=== PATIENT | male | born 1970 | race Two or more races ===

== ENCOUNTER 2018-02-23 16:22 | Inpatient (IN) | payer MEDICAID ==
[~2018-02-23] VITALS: Ht 172.7 cm; Wt 68.7 kg
[2018-02-23] MEDS ORDERED: TAMSULOSIN HCL0.4 MG GT (16:51)
[2018-02-23] MEDS ORDERED: FUROSEMIDE40 MG GT (16:51)
[2018-02-23] MEDS ORDERED: MULTIVITAMINS1 EAC2 GT (16:51)
[2018-02-23] MEDS ORDERED: HEPARIN SO5000 UNIT2 SUBQ (16:51)
[2018-02-23] MEDS ORDERED: VITAMIN D1000 UNI1 GT (16:51)
[2018-02-23] MEDS ORDERED: PRO-STAT LIQUID30 ML GT (16:51)
[2018-02-23] MEDS ORDERED: NORVASC10 MG GT (16:51)
[2018-02-23] MEDS ORDERED: PANTOPRAZOLE SO40 MG GT (16:51)
[2018-02-23] MEDS ORDERED: ASPIR 8181 MG GT (16:51)
[2018-02-23] MEDS ORDERED: FERROUS SULFAT325 MG GT (16:51)
[2018-02-23] MEDS ORDERED: LIPITOR80 MG GT (16:51)
[2018-02-23] MEDS ORDERED: VITAMIN B-1100 MG GT (16:51)
[2018-02-23] MEDS ORDERED: METOPROLOL SUCC25 MG GT (16:51)
[2018-02-23] MEDS ORDERED: ASCORBIC ACID500 MG GT (16:51)
[2018-02-23] MEDS ORDERED: URECHOLINE50 MG GT (16:51)
[2018-02-23] MEDS ORDERED: LISINOPRIL20 MG GT (16:51)
[2018-02-23] MEDS ORDERED: BACLOFEN10 MG GT (16:51)
[2018-02-23] MEDS ORDERED: REGULAR INSULIN SS (16:52)
[2018-02-23] MEDS ORDERED: NOVOLIN N100 UNIT/1 SUBQ (16:52)
[2018-02-23] MEDS ORDERED: levETIRAcetam 500 MG in D5W 110 ML IV ONE (17:00)
[2018-02-23] MEDS ORDERED: duo neb HHN (17:02)
[2018-02-23] MEDS ORDERED: ZOFRAN4 M3 GT (17:02)
[2018-02-23] MEDS ORDERED: COLACE100 MG GT (17:02)
[2018-02-23] MEDS ORDERED: ACETAMINOPHEN325 M1 GT (17:02)
[2018-02-23] MEDS ORDERED: dulcolax supp RC (17:02)
[2018-02-23] MEDS ORDERED: SENNA8.6 M2 GT (17:02)
[2018-02-23] MEDS ORDERED: MILK OF MA400 MG/51 GT ×2 (17:02→19:15)
[2018-02-23] MEDS ORDERED: fleets enema RC (17:02)
[2018-02-23 17:35] LABS: BASOPHILS % (AUTO) 0.7 % (0.0-2.0); EOSINOPHILS % (AUTO) 3.8 % (0.0-3.0); HEMATOCRIT 31.7 % (42.0-52.0); HEMOGLOBIN 10.7 G/DL (14.2-18.0); LYMPHOCYTES % (AUTO) 25.4 % (20.0-45.0); MEAN CORPUSCULAR VOLUME 88 FL (80-99); MONOCYTES % (AUTO) 6.3 % (1.0-10.0); NEUTROPHILS % (AUTO) 63.8 % (45.0-75.0); PLATELET COUNT 354 K/UL (150-450); RED CELL DISTRIBUTION WIDTH 10.2 % (11.6-14.8); WHITE BLOOD COUNT 16.9 K/UL (4.8-10.8)
[2018-02-23 17:41] LABS: ANION GAP 15 mmol/L (5-15); BLOOD UREA NITROGEN 84 mg/dL (7-18); CALCIUM 10.4 MG/DL (8.5-10.1); CARBON DIOXIDE 26 MMOL/L (21-32); CHLORIDE 95 MMOL/L (98-107); CREATININE 2.4 MG/DL (0.55-1.30); POTASSIUM 4.9 MMOL/L (3.5-5.1); SODIUM 135 MMOL/L (136-145)
[2018-02-23 17:45] LABS: ALANINE AMINOTRANSFERASE 129 U/L (12-78); ALBUMIN 3.8 G/DL (3.4-5.0); ALBUMIN/GLOBULIN RATIO 0.8 (1.0-2.7); ALKALINE PHOSPHATASE 158 U/L (46-116); ASPARTATE AMINO TRANSFERASE 36 U/L (15-37); BILIRUBIN,TOTAL 0.3 MG/DL (0.2-1.0)
--- NOTE | 2018-02-23 18:45 | Emergency Room Report ---
History of Present Illness General Chief Complaint: Seizure Source: Patient, Medical Record Present Illness HPI Patient is a 47-year-old male presented after increased seizure activity. 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 Patient had no previous seizures. Patient had been having some episodes of vomiting. Patient had a seizure lasting approximately 7 minutes at [facility].Patient is followed by Dr. Bowman. Allergies: Coded Allergies: No Known Allergies (Unverified , 02/23/18) Patient History Reviewed Nursing Documentation: PMH: Agreed; PSxH: Agreed Nursing Documentation-PMH Past Medical History: No History, Except For Hx Hypertension: Yes Hx Diabetes: Yes Hx Gastrointestinal Problems: Yes - G-tube, GERD Hx Cerebrovascular Accident: Yes - cerebral edema Review of Systems All Other Systems: limited Physical Exam Vital Signs Date Time Temp Pulse Resp B/P (MAP) Pulse Ox O2 Delivery O2 Flow Rate FiO2 02/23/18 16:25 98.1 114 16 137/76 98 Room Air Sp02 EP Interpretation: reviewed, normal General Appearance: normal inspection, well appearing, no apparent distress, alert Head: atraumatic, other - post surgical skull ENT: normal ENT inspection, hearing grossly normal, normal voice Neck: normal inspection, full range of motion, supple, no bony tend Respiratory: normal inspection, lungs clear, normal breath sounds, no respiratory distress, no retraction, no wheezing Cardiovascular #1: regular rate, rhythm, no edema Gastrointestinal: normal inspection, normal bowel sounds, non tender, soft, no guarding, no hernia, other - gtube present Genitourinary: no CVA tenderness Musculoskeletal: normal inspection, back normal, normal range of motion Neurologic: normal inspection, alert, responsive, motor weakness - right upper and lower extremity Psychiatric: normal inspection, judgement/insight normal, mood/affect normal Skin: normal inspection, normal color, no rash Medical Decision Making Diagnostic Impression: Primary Impression: Epileptic seizure, generalized Additional Impressions: Vomiting History of CVA (cerebrovascular accident) ER Course Patient presented for new onset seizure. Differential diagnosis include was not limited to electrolyte abnormality, post stroke seizure, meningitis, encephalitis, among others. Because of complexity of patient's case laboratory testing and imaging studies were ordered. CT imaging of the head read by radiology showed postsurgical changes without evident acute changes. Patient was started on IV Keppra. Patient was given IV fluids. Patient was noted to be vomiting after feeding and so CT of abdomen pelvis was ordered. Dr.Helder Rogel was contacted for inpatient management and agreed to admit the patient. Labs Test 02/23/18 16:36 02/23/18 16:42 White Blood Count 16.9 K/UL (4.8-10.8) Red Blood Count 3.60 M/UL (4.70-6.10) Hemoglobin 10.7 G/DL (14.2-18.0) Hematocrit 31.7 % (42.0-52.0) Mean Corpuscular Volume 88 FL (80-99) Mean Corpuscular Hemoglobin 29.7 PG (27.0-31.0) Mean Corpuscular Hemoglobin Concent 33.9 G/DL (32.0-36.0) Red Cell Distribution Width 10.2 % (11.6-14.8) Platelet Count 354 K/UL (150-450) Mean Platelet Volume 8.3 FL (6.5-10.1) Neutrophils (%) (Auto) 63.8 % (45.0-75.0) Lymphocytes (%) (Auto) 25.4 % (20.0-45.0) Monocytes (%) (Auto) 6.3 % (1.0-10.0) Eosinophils (%) (Auto) 3.8 % (0.0-3.0) Basophils (%) (Auto) 0.7 % (0.0-2.0) Sodium Level 135 MMOL/L (136-145) Potassium Level 4.9 MMOL/L (3.5-5.1) Chloride Level 95 MMOL/L (98-107) Carbon Dioxide Level 26 MMOL/L (21-32) Anion Gap 15 mmol/L (5-15) Blood Urea Nitrogen 84 mg/dL (7-18) Creatinine 2.4 MG/DL (0.55-1.30) Estimat Glomerular Filtration Rate 29.0 mL/min (>60) Glucose Level 218 MG/DL (74-106) Calcium Level 10.4 MG/DL (8.5-10.1) Total Bilirubin 0.3 MG/DL (0.2-1.0) Aspartate Amino Transf (AST/SGOT) 36 U/L (15-37) Alanine Aminotransferase (ALT/SGPT) 129 U/L (12-78) Alkaline Phosphatase 158 U/L (46-116) Troponin I 0.000 ng/mL (0.000-0.056) Total Protein 8.6 G/DL (6.4-8.2) Albumin 3.8 G/DL (3.4-5.0) Globulin 4.8 g/dL Albumin/Globulin Ratio 0.8 (1.0-2.7) Urine Color Pale yellow Urine Appearance Clear Urine pH 6 (4.5-8.0) Urine Specific [place] 1.010 (1.005-1.035) Urine Protein 1+ (NEGATIVE) Urine Glucose (UA) Negative (NEGATIVE) Urine Ketones Negative (NEGATIVE) Urine Blood Negative (NEGATIVE) Urine Nitrite Negative (NEGATIVE) Urine Bilirubin Negative (NEGATIVE) Urine Urobilinogen Normal MG/DL (0.0-1.0) Urine Leukocyte Esterase Negative (NEGATIVE) Urine RBC 0-2 /HPF (0 - 0) Urine WBC 0-2 /HPF (0 - 0) Urine Squamous Epithelial Cells None /LPF (NONE/OCC) Urine Bacteria None /HPF (NONE) EKG Diagnostic Results Rate: normal - 107 Rhythm: NSR ST Segments: no acute changes Last Vital Signs Date Time Temp Pulse Resp B/P (MAP) Pulse Ox O2 Delivery O2 Flow Rate FiO2 02/23/18 16:25 98.1 114 16 137/76 98 Room Air Status: unchanged Disposition: ADMITTED INPATIENT Condition: Serious Referrals: Harriett Bowman MD (PCP) Eduardo De La Cruz MD Feb 23, 2018 18:45
[2018-02-23] MEDS ORDERED: METOPROLOL TART25 MG ORAL (18:57)
[2018-02-23] MEDS ORDERED: METOPROLOL TART25 MG GT (18:57)
[2018-02-23] MEDS ORDERED: OMEPRAZOLE20 M2 GT (18:57)
[2018-02-23] MEDS ORDERED: NOVOLIN R100 UNIT/1 SUBQ (19:18)
[2018-02-23] MEDS ORDERED: DULCOLAX10 MG RC (19:18)
[2018-02-23] MEDS ORDERED: DUONEB 0.5-3(2.53 ML HHN (19:18)
[2018-02-23] MEDS ORDERED: FLEET ENEMA133 ML RECTAL (19:18)
[2018-02-23] MEDS ORDERED: HYDROXYZINE HCL10 M1 PO ×2 (19:24)
[2018-02-23 19:26] LABS: APPEARANCE,URINE CLEAR; BILIRUBIN, URINE NEGATIVE (NEGATIVE); COLOR,URINE PALE YELLOW; GLUCOSE, URINE (UA) NEGATIVE (NEGATIVE); KETONES,URINE NEGATIVE (NEGATIVE); LEUKOCYTE ESTERASE ,URINE NEGATIVE (NEGATIVE); NITRITE,URINE NEGATIVE (NEGATIVE); PH,URINE 6 (4.5-8.0); PROTEIN,URINE 1+ (NEGATIVE); UROBILINOGEN,URINE NORMAL MG/DL (0.0-1.0)
[2018-02-23 19:28] VITALS: BP 100/60
[2018-02-23 21:22] VITALS: BP 112/60
[2018-02-23] MEDS ORDERED: Acetaminophen 650mg/20.3ml GT PRN (22:15)
[2018-02-23 23:20] VITALS: BP 139/75
[2018-02-23] MEDS: Metoprolol 25mg tab GT SCH (23:52)
[2018-02-24] VITALS: BP 110/60
[2018-02-24 04:00] VITALS: BP 105/61
[2018-02-24 05:38] LABS: BASOPHILS % (AUTO) 0.7 % (0.0-2.0); EOSINOPHILS % (AUTO) 0.9 % (0.0-3.0); HEMATOCRIT 28.1 % (42.0-52.0); HEMOGLOBIN 9.6 G/DL (14.2-18.0); LYMPHOCYTES % (AUTO) 13.8 % (20.0-45.0); MEAN CORPUSCULAR VOLUME 88 FL (80-99); MONOCYTES % (AUTO) 6.4 % (1.0-10.0); NEUTROPHILS % (AUTO) 78.3 % (45.0-75.0); PLATELET COUNT 304 K/UL (150-450); RED BLOOD COUNT 3.19 M/UL (4.70-6.10); RED CELL DISTRIBUTION WIDTH 10.5 % (11.6-14.8); WHITE BLOOD COUNT 15.6 K/UL (4.8-10.8)
[2018-02-24 06:10] LABS: ANION GAP 9 mmol/L (5-15); BLOOD UREA NITROGEN 75 mg/dL (7-18); CALCIUM 9.7 MG/DL (8.5-10.1); CARBON DIOXIDE 26 MMOL/L (21-32); CHLORIDE 101 MMOL/L (98-107); CREATININE 1.9 MG/DL (0.55-1.30); POTASSIUM 5.2 MMOL/L (3.5-5.1); SODIUM 136 MMOL/L (136-145)
[2018-02-24] MEDS: NovoLOG Insulin Flexpen SUBQ SCH ×4 (06:13→23:58)
[2018-02-24] MEDS ORDERED: NovoLOG Insulin Flexpen SUBQ SCH (06:30)
[2018-02-24 08:00] VITALS: BP 91/60
[2018-02-24] MEDS: Metoprolol 25mg tab GT SCH ×2 (08:36→21:34)
[2018-02-24] MEDS: Bethanechol 25mg Tab GT SCH ×2 (08:49→17:41)
[2018-02-24] MEDS: Mag Plus Protein 133mg Tab GT SCH ×3 (08:50→17:41)
[2018-02-24] MEDS ORDERED: Aspirin Baby 81mg GT SCH (09:00)
[2018-02-24] MEDS ORDERED: Ascorbic Acid 500mg tab GT SCH (09:00)
[2018-02-24] MEDS ORDERED: Heparin 5000 units/ml inj SUBQ SCH (09:00)
[2018-02-24] MEDS ORDERED: Thiamine 100mg tab GT SCH (09:00)
--- NOTE | 2018-02-24 10:58 | Diagnostic Imaging Report ---
Indication: Abdominal pain, vomiting Technique: Spiral acquisitions obtained through the abdomen and pelvis. No oral contrast utilized, per emergency room physician request No IV contrast utilized, per referring physician request.. Multiplanar reconstructions were generated. Total dose length product 910.63 mGycm. CTDIvol(s) 16.14 mGy. Dose reduction achieved using automated exposure control Comparison: None Findings: There is a gastrostomy which appears to be well positioned. The stomach, esophagus, and duodenum are otherwise unremarkable. The appendix is normal. No evidence of diverticulosis or diverticulitis. No small bowel distention. No free or loculated intraperitoneal gas or fluid. Lack of IV contrast limits assessment of the solid organs. The liver, gallbladder, bile ducts, pancreas, spleen, adrenals, kidneys are unremarkable. There is some nonspecific bilateral perinephric fat stranding. The bladder is mildly distended, equivocally slightly thick walled, otherwise unremarkable. Prostate and seminal vesicles are unremarkable. The included lung bases demonstrate posterior atelectatic changes. The bones are unremarkable. Impression: No definite acute abnormality Gastrostomy in good position Equivocal bladder wall thickening, could indicate cystitis. Correlate with clinical findings Nonspecific bilateral perinephric fat stranding This agrees with the preliminary interpretation provided overnight by [facility] teleradiology service. The CT scanner at [facility] is accredited by the [employer] and the scans are performed using protocols designed to limit radiation exposure to as low as reasonably achievable to attain images of sufficient resolution adequate for diagnostic evaluation.
[2018-02-24] MEDS ORDERED: levETIRAcetam 500mg/5ml Liquid GT SCH (11:00)
--- NOTE | 2018-02-24 11:45 | History and Physical Report ---
DATE OF ADMISSION: 02/23/2018 REASON FOR ADMISSION: 1. Seizures. 2. Acute kidney injury. HISTORY OF PRESENT ILLNESS: The patient is a 47-year-old male who five months ago had a traumatic brain injury and craniotomy at [facility]. The patient had been doing well until noticed the patient having seizures yesterday. As such, he was brought in for further evaluation and care. CT of the head results are still pending, but was reported negative by ER physician. The patient was given Keppra and his seizures have stopped. says he is back to normal baseline. He is a resident of [facility]. In no overt distress. No chest pain, vomiting, diarrhea, or abdominal pain. ALLERGIES: No known drug allergies. PAST MEDICAL HISTORY: 1. Diabetes. 2. Hypertension. 3. Traumatic brain injury. FAMILY HISTORY: Noncontributory. PAST SURGICAL HISTORY: Craniotomy. REVIEW OF SYSTEMS: Cannot obtain. LABORATORY DATA: Labs dated 02/24/2018, sodium 136, potassium 5.2, BUN 75, creatinine 1.9, and glucose 153. White cell count 15.6, platelet count 304,000, and hemoglobin 9.6. PHYSICAL EXAMINATION: VITAL SIGNS: Blood pressure 91/60, pulse 83, temperature 97.7, and pulse oximetry 97% on room air. GENERAL: The patient is awake and alert. HEENT: Extraocular muscles intact. No lymphadenopathy noted. CARDIOVASCULAR: S1 and S2. No rubs or gallops. PULMONARY: Clear to auscultation bilaterally. No rales, rhonchi, or wheezes. ABDOMEN: Nondistended and nontender. EXTREMITIES: No edema. ASSESSMENT AND PLAN: 1. New-onset seizures, has history of prior craniotomy five months ago. We will initiate Keppra 500 mg twice a day through G-tube and monitor levels. When the patient is stable, he will be discharged to follow up with his neurologist at [facility]. 2. Hypotension. Hold blood pressure medications if systolic less than 110. Continue to monitor. Initiate IV fluids. 3. Leukocytosis. Check urine and blood cultures. Consult Infectious Disease for evaluation. 4. Diabetes mellitus. Continue insulin sliding scale and low-carbohydrate diet. 5. Hypertension. Avoid hypertensive episodes. 6. Acute kidney injury. Creatinine has improved from 2.4 to 1.9 and BUN 84 to 75. Continue IV hydration and hemodynamic stability. Nasim Rogel MD DR: JOLENE JOB#: [id number] CC:
[2018-02-24 11:48] VITALS: BP 116/65
--- NOTE | 2018-02-24 11:50 | Consultation ---
History of Present Illness General Date patient seen: Feb 24, 2018 Chief Complaint: Seizure Present Illness HPI 47 y/o M with hx of HTN, Dm2, GERD, CVA, TBI s/p craniectomy, SNF resident presents to ED on 02/23 with seizures and episodes of vomiting. Allergies: Coded Allergies: No Known Allergies (Unverified , 02/23/18) Medication History Scheduled Amino Acids/Protein Hydrolys (Pro-Stat Liquid), 30 ML GT DAILY, (Reported) Amlodipine Besylate (Norvasc), 10 MG GT DAILY, (Reported) Ascorbic Acid* (Ascorbic Acid*), 500 MG GT DAILY, (Reported) Aspirin* (Aspir 81*), 81 MG GT DAILY, (Reported) Atorvastatin (Lipitor), 80 MG GT BEDTIME, (Reported) Baclofen* (Baclofen*), 10 MG GT DAILY, (Reported) Bethanechol Chl* (Urecholine*), 50 MG GT BID, (Reported) Cholecalciferol (Vitamin D3)* (Vitamin D*), 5,000 UNIT GT DAILY, (Reported) Docusate Sodium* (Colace*), 100 MG GT DAILY, (Reported) Ferrous Sulfate* (Ferrous Sulfate*), 325 MG GT DAILY, (Reported) Furosemide* (Lasix*), 40 MG GT TWICE A DAY, (Reported) Heparin Sod (Porcine) (Heparin Sodium*), 5,000 UNITS SUBQ EVERY 12 HOURS, ( Reported) Hydroxyzine Hcl (Hydroxyzine Hcl), 20 MG PO DAILY, (Reported) Insulin Regular, Human* (Novolin R*), 0 SUBQ .SLIDING SCALE, (Reported) Lisinopril (Lisinopril*), 20 MG GT BID, (Reported) Metoprolol Tartrate* (Metoprolol Tartrate*), 25 MG GT EVERY 12 HOURS, (Reported) Multivitamins* (Multivitamins*), 1 TAB GT DAILY, (Reported) Nph, Human Insulin Isophane* (Novolin N*), 22 SUBQ Q8HR, (Reported) Omeprazole (Omeprazole), 20 MG GT DAILY, (Reported) Sennosides (Senna), 2 TAB GT QHS, (Reported) Tamsulosin Hcl (Tamsulosin Hcl*), 0.4 MG GT BEDTIME, (Reported) Thiamine Hcl* (Vitamin B-1*), 100 MG GT DAILY, (Reported) Scheduled PRN Acetaminophen* (Acetaminophen 325MG Tablet*), 650 MG GT Q4H PRN for For Pain, ( Reported) Bisacodyl (Dulcolax), 10 MG RC DAILY PRN for Constipation, (Reported) Hydroxyzine Hcl (Hydroxyzine Hcl), 20 MG PO Q6HR PRN for Itching, (Reported) Ipratropium/Albuterol Sulfate (DuoNeb 0.5-3(2.5)mg/3ml), 3 ML HHN Q6HR PRN for Shortness of Breath, (Reported) Magnesium Hydroxide* (Milk Of Magnesia*), 30 ML GT DAILY PRN for Constipation, ( Reported) Na Phos,M-B/Na Phos,Di-Ba* (Fleet Enema*), 133 ML RECTAL q2day PRN for Constipation, (Reported) Ondansetron* (Zofran*), 4 MG GT Q6H PRN for Nausea & Vomiting, (Reported) Discontinued Medications Pantoprazole* (Pantoprazole*), 40 MG GT DAILY, (Reported) Discontinued Reason: Therapy completed Patient History Healthcare decision maker N Resuscitation status Chemical (Meds Only) Advanced Directive on File Patient History Narrative PMhx: as above Shx: reviewed Fhx: non contributory Review of Systems All Other Systems: negative except mentioned in HPI Physical Exam Physical Exam Narrative General Appearance: normal inspection, well appearing, no apparent distress, alert HEENT: normal ENT inspection, hearing grossly normal, normal voice Neck: normal inspection, full range of motion, supple, no bony tend Respiratory: normal inspection, lungs clear, normal breath sounds, no respiratory distress, no retraction, no wheezing Cardiovascular : regular rate, rhythm, no edema Gastrointestinal: normal inspection, normal bowel sounds, non tender, soft, no guarding, no hernia Genitourinary: no CVA tenderness Musculoskeletal: normal inspection, back normal, normal range of motion Neurologic: normal inspection, alert, responsive, speech normal Skin: normal inspection, normal color, no rash Last 24 Hour Vital Signs Date Time Temp Pulse Resp B/P (MAP) Pulse Ox O2 Delivery O2 Flow Rate FiO2 02/24/18 08:37 83 91/60 02/24/18 08:36 83 91/60 02/24/18 08:00 97.7 83 19 91/60 (70) 97 02/24/18 08:00 79 02/24/18 08:00 Room Air 02/24/18 04:00 Room Air 02/24/18 04:00 83 02/24/18 04:00 98.8 80 20 105/61 (76) 100 02/24/18 00:00 98.7 91 20 110/60 (77) 100 02/24/18 00:00 Room Air 02/24/18 00:00 87 02/24/18 00:00 Room Air 02/23/18 23:52 91 139/75 02/23/18 23:20 97.7 91 20 139/75 (96) 100 02/23/18 23:10 98.1 86 14 112/60 100 Room Air 02/23/18 21:22 98.1 86 14 112/60 100 Room Air 02/23/18 19:28 84 16 02/23/18 19:28 98.1 84 16 100/60 99 Room Air 02/23/18 16:25 98.1 114 16 137/76 98 Room Air Intake and Output 02/23/18 02/24/18 18:59 06:59 Intake Total 1000 ml 776 ml Balance 1000 ml 776 ml IV Total 1000 ml 646 ml Tube Feeding 130 ml # Voids 1 2 Laboratory Tests Test 02/23/18 16:36 02/23/18 16:42 02/24/18 03:20 02/24/18 10:15 White Blood Count 16.9 K/UL (4.8-10.8) H 15.6 K/UL (4.8-10.8) H Red Blood Count 3.60 M/UL (4.70-6.10) L 3.19 M/UL (4.70-6.10) L Hemoglobin 10.7 G/DL (14.2-18.0) L 9.6 G/DL (14.2-18.0) L Hematocrit 31.7 % (42.0-52.0) L 28.1 % (42.0-52.0) L Mean Corpuscular Volume 88 FL (80-99) 88 FL (80-99) Mean Corpuscular Hemoglobin 29.7 PG (27.0-31.0) 30.1 PG (27.0-31.0) Mean Corpuscular Hemoglobin Concent 33.9 G/DL (32.0-36.0) 34.2 G/DL (32.0-36.0) Red Cell Distribution Width 10.2 % (11.6-14.8) L 10.5 % (11.6-14.8) L Platelet Count 354 K/UL (150-450) 304 K/UL (150-450) Mean Platelet Volume 8.3 FL (6.5-10.1) 8.6 FL (6.5-10.1) Neutrophils (%) (Auto) 63.8 % (45.0-75.0) 78.3 % (45.0-75.0) H Lymphocytes (%) (Auto) 25.4 % (20.0-45.0) 13.8 % (20.0-45.0) L Monocytes (%) (Auto) 6.3 % (1.0-10.0) 6.4 % (1.0-10.0) Eosinophils (%) (Auto) 3.8 % (0.0-3.0) H 0.9 % (0.0-3.0) Basophils (%) (Auto) 0.7 % (0.0-2.0) 0.7 % (0.0-2.0) Sodium Level 135 MMOL/L (136-145) L 136 MMOL/L (136-145) Potassium Level 4.9 MMOL/L (3.5-5.1) 5.2 MMOL/L (3.5-5.1) H 5.2 MMOL/L (3.5-5.1) H Chloride Level 95 MMOL/L (98-107) L 101 MMOL/L (98-107) Carbon Dioxide Level 26 MMOL/L (21-32) 26 MMOL/L (21-32) Anion Gap 15 mmol/L (5-15) 9 mmol/L (5-15) Blood Urea Nitrogen 84 mg/dL (7-18) H 75 mg/dL (7-18) H Creatinine 2.4 MG/DL (0.55-1.30) H 1.9 MG/DL (0.55-1.30) H Estimat Glomerular Filtration Rate 29.0 mL/min (>60) 38.0 mL/min (>60) Glucose Level 218 MG/DL (74-106) H 153 MG/DL (74-106) H Calcium Level 10.4 MG/DL (8.5-10.1) H 9.7 MG/DL (8.5-10.1) Total Bilirubin 0.3 MG/DL (0.2-1.0) Aspartate Amino Transf (AST/SGOT) 36 U/L (15-37) Alanine Aminotransferase (ALT/SGPT) 129 U/L (12-78) H Alkaline Phosphatase 158 U/L (46-116) H Troponin I 0.000 ng/mL (0.000-0.056) Total Protein 8.6 G/DL (6.4-8.2) H Albumin 3.8 G/DL (3.4-5.0) Globulin 4.8 g/dL Albumin/Globulin Ratio 0.8 (1.0-2.7) L Urine Color Pale yellow Urine Appearance Clear Urine pH 6 (4.5-8.0) Urine Specific [place] 1.010 (1.005-1.035) Urine Protein 1+ (NEGATIVE) H Urine Glucose (UA) Negative (NEGATIVE) Urine Ketones Negative (NEGATIVE) Urine Blood Negative (NEGATIVE) Urine Nitrite Negative (NEGATIVE) Urine Bilirubin Negative (NEGATIVE) Urine Urobilinogen Normal MG/DL (0.0-1.0) Urine Leukocyte Esterase Negative (NEGATIVE) Urine RBC 0-2 /HPF (0 - 0) H Urine WBC 0-2 /HPF (0 - 0) Urine Squamous Epithelial Cells None /LPF (NONE/OCC) Urine Bacteria None /HPF (NONE) Microbiology Date/Time Source Procedure Growth Status 02/23/18 19:40 Rectum Received Height (Feet): 5 Height (Inches): 8.00 Weight (Pounds): 163 Medications Current Medications Medications (Trade) Dose Ordered Sig/Xavi Route PRN Reason Start Time Stop Time Status Last Admin Dose Admin Acetaminophen (Tylenol) 650 mg Q4H PRN GT For Pain 02/23/18 22:15 03/25/18 22:14 Amino Acids/ Magnesium (Mg-Plus) 133 mg THREE TIMES A DAY GT 02/24/18 09:00 03/26/18 08:59 02/24/18 08:50 Amlodipine Besylate (Norvasc) 10 mg DAILY GT 02/24/18 09:00 03/26/18 08:59 Ascorbic Acid (Vitamin C) 500 mg DAILY GT 02/24/18 09:00 03/26/18 08:59 02/24/18 08:49 Aspirin (ASA) 81 mg DAILY GT 02/24/18 09:00 03/26/18 08:59 02/24/18 08:49 Atorvastatin Calcium (Lipitor) 80 mg BEDTIME GT 02/24/18 21:00 03/26/18 20:59 Baclofen (Lioresal) 10 mg DAILY GT 02/24/18 09:00 03/26/18 08:59 02/24/18 08:49 Bethanechol Chloride (Urecholine) 50 mg BID GT 02/24/18 09:00 03/26/18 08:59 02/24/18 08:49 Dextrose (Dextrose 50%) 25 ml Q30M PRN IV Hypoglycemia 02/23/18 22:15 03/25/18 22:14 Dextrose (Dextrose 50%) 50 ml Q30M PRN IV Hypoglycemia 02/23/18 22:15 03/25/18 22:14 Furosemide (Lasix) 10 mg ONCE IV 02/24/18 11:00 02/24/18 12:30 02/24/18 10:56 Heparin Sodium (Porcine) (Heparin 5000 units/ml) 5,000 units EVERY 12 HOURS SUBQ 02/24/18 09:00 03/26/18 08:59 02/24/18 08:52 Insulin Aspart (NovoLOG) Q6HR SUBQ 02/24/18 06:00 03/26/18 06:29 02/24/18 06:13 Levetiracetam (Keppra) 500 mg Q12HR GT 02/24/18 11:00 03/26/18 10:59 02/24/18 10:27 Metoprolol Tartrate (Lopressor) 25 mg Q12HR GT 02/23/18 22:45 03/25/18 22:44 02/23/18 23:52 Ondansetron HCl (Zofran) 4 mg Q6H PRN IVP Nausea & Vomiting 02/23/18 22:15 03/25/18 22:14 Sodium Chloride 1,000 ml @ 100 mls/hr Q10H IV 02/23/18 22:30 03/25/18 22:29 02/24/18 08:49 Thiamine HCl (Vitamin B1) 100 mg DAILY GT 02/24/18 09:00 03/26/18 08:59 02/24/18 08:49 Assessment/Plan Assessment/Plan Abx: None Assessment: seizure Vomiting -CT head p Afebrile Leukocytosis, improving- suspect reactive to seizure episode -CXR p -u/a neg -CT abd/p: No definite acute abnormality. Gastrostomy in good position. Equivocal bladder wall thickening, could indicate cystitis. Correlate with clinical findings. Nonspecific bilateral perinephric fat stranding HTN Dm2 GERD CVA TBI s/p craniectomy SNF resident Plan: -Continue to monitor off abx unless febrile, increasing WBC and/or infectious process suggested in pending imaging studies -f/u cx -Monitor CBC/CMP, temperatures -aspiration precautions -f/u CT head, CXR -Neuro eval Thank you for this consultation. Will continue to follow along with you. Discussed with Bernadette Perry M.D. Feb 24, 2018 11:50
--- NOTE | 2018-02-24 12:30 | History and Physical Report ---
DATE OF ADMISSION: 02/23/2018 CHIEF COMPLAINT: Admission to [facility] of this 47-year-old patient because of new onset of seizures. HISTORY OF PRESENT ILLNESS: The patient is a resident of an extended care facility where he has been in stable condition over the last several days. He is known to have several chronic medical syndrome, but has been stable on his current medication. On the day of admission, he had a tonic-clonic seizure followed by episodes of vomiting. He was transferred to [facility] ER and was admitted. Past medical history, the patient underwent an intracerebral hemorrhage for which he was admitted to [facility] and underwent craniotomy operation where the patient had a large skull defect; however, the patient recovered from this. The patient regained . He was able to maintain airways and was finally referred to [facility] where he has resided the last several weeks. PAST MEDICAL HISTORY: The patient had for more than 15 years and high blood pressure for 10 years. ALLERGIES: No known drug allergies. MEDICATIONS: The patient is on vitamin C 500 mg daily, aspirin 81 mg daily, atorvastatin 80 mg, baclofen 10 mg daily, 50 mg b.i.d., 1000 units daily, furosemide 40 mg daily, , ipratropium bromide, albuterol sulfate , metoprolol 25 mg daily, 0.4 mg daily, and thiamine 100 mg daily. FAMILY HISTORY: Noncontributory. SOCIAL HISTORY: He is . He was born in [place]. He was born in [place] and been in [place] for more than 50 years, . Habits: The patient does not smoke, drink, or use illicit drugs. REVIEW OF SYSTEMS: The patient is unable to give any information regarding his state of health. PHYSICAL EXAMINATION: VITAL SIGNS: Blood pressure is 139/75, pulse is 91, respirations of 20, and temperature 97.5. HEENT: Eyes were normal. Pupils were round, equal, and reactive to light. Sclerae are white. Conjunctivae are pink. Extraocular movements were normal. Temporal arteries were palpable bilaterally. There was no bilateral temporal wasting. Visual jeffries to confrontation were normal. Neglect sign was negative. ENT, mucous membranes were not dehydrated. Auditory canals were clear and tympanic membranes could not be visualized. Nasal cavity was not congested. Nasal septum was intact. Soft palate was free of ulcerations. Pharynx was clear from exudate or tonsillar hypertrophy. Uvula cornelia to phonation. Tongue was moist, midline, and normally papillated. NECK: Supple. There was no goiter. No mass. No lymphadenopathy. There was no JVD. No bruits. Carotid upstroke was 2+. LUNGS: Clear. HEART: PMI was in fifth left intercostal space in midclavicular line. There was normal S1 and normal S2. There was no murmur. No arrhythmia. No S3. No S4. No pericardial rub. ABDOMEN: Soft and nontender without organomegaly. There were no masses palpable. Normal bowel sounds without bruits. There was no guarding. No rebound tenderness. No ascites. No hernia. No CVA tenderness. Liver span was 8 cm, smooth, and nontender. EXTREMITIES: No cyanosis, no clubbing, and no edema. Extremities were warm. NEUROLOGICAL: Reflexes in biceps, triceps, and brachioradialis were present. Patellar retinaculum was present. Plantars were in extension on the right and flexion on the left. Cranial nerves II through XII were symmetric and equal. Cerebellar function, gait was not . [id number] and rapid alternating movement was normal. Romberg sign was negative. There was no tremor. No nystagmus. No extrapyramidal rigidity. Sensory exam to pinprick, cotton touch, and position. LABORATORY AND DIAGNOSTIC DATA: Hemoglobin is 10.7, hematocrit 31.7 with MCV of 88, WBC of 16.9, and platelets is 354,000. His BUN and creatinine is 84 and 2.4 respectively. Sodium is 135, potassium 4.9, chloride 95, CO2 is 26, calcium is 10.4, and glucose is 218. SGPT was 129 and SGOT was 78. Troponin was not detected. Albumin is 3.8. Globulin is 4.3. IMPRESSION: New onset of seizures. CT scan of the brain will be done and Neurology was consulted to assist in the management of this case. . Repeat laboratory tests will be done in the a.m. Harriett Bowman M.D. DR: FRANCISCA JOB#: [id number] CC:
--- NOTE | 2018-02-24 14:17 | Cardiology Report ---
APPROVED REPORT EKG Measurement Heart [id number] [place] [id number] Sinus tachycardia Otherwise normal ECG
--- NOTE | 2018-02-24 14:44 | Diagnostic Imaging Report ---
Indications: Increased seizure activity, altered mental status Technique: Spiral acquisitions obtained through the brain. Angled axial and coronal 5 x 5 mm slices were reconstructed. Total dose length product 1439.42 mGycm. CTDI vol(s) 70.38 mGy. Dose reduction achieved using automated exposure control Comparison: None. Findings: There is a large left convexity craniectomy defect. There is extensive left cerebral volume loss, as well as encephalomalacia of much of the remaining cerebrum, particularly involving the posterior frontal lobe, the anterior temporal lobe and most of the parietal lobe. The right hemisphere is largely normal in appearance. There is ex vacuo dilatation of the left lateral ventricle. No acute intracranial hemorrhage nor edema. No mass effect nor midline shift. The mastoids are clear. The orbits are unremarkable. The visualized sinuses are unremarkable Impression: Extensive chronic and postsurgical changes, as described Negative for acute intracranial bleed or mass effect This agrees with the preliminary interpretation provided overnight by [facility]. The CT scanner at [facility] is accredited by the [employer] and the scans are performed using protocols designed to limit radiation exposure to as low as reasonably achievable to attain images of sufficient resolution adequate for diagnostic evaluation.
[2018-02-24 16:00] VITALS: BP 129/73
--- NOTE | 2018-02-24 17:34 | Diagnostic Imaging Report ---
Indication: Shortness of breath Technique: One view of the chest Comparison: none Findings: Lungs and pleural spaces are clear. Heart size is normal Impression: No acute process
[2018-02-24] MEDS ORDERED: Acetaminophen 650mg/20.3ml GT PRN (18:51)
[2018-02-24 20:00] VITALS: BP 120/66
[2018-02-24] MEDS ORDERED: Atorvastatin 80mg tab GT SCH ×2 (21:00)
[2018-02-24] MEDS ORDERED: Tamsulosin 0.4mg cap ORAL SCH (21:00)
[2018-02-24] MEDS: levETIRAcetam 500mg/5ml Liquid GT SCH (21:34)
[2018-02-24] MEDS: Heparin 5000 units/ml inj SUBQ SCH (21:36)
[2018-02-25] VITALS: BP 127/67
[2018-02-25 04:00] VITALS: BP 96/65
[2018-02-25] MEDS: NovoLOG Insulin Flexpen SUBQ SCH ×3 (06:58→18:28)
[2018-02-25 07:35] LABS: HEMATOCRIT 26.1 % (42.0-52.0); HEMOGLOBIN 8.9 G/DL (14.2-18.0); LYMPHOCYTES % (AUTO) 29.5 % (20.0-45.0); MEAN CORPUSCULAR VOLUME 90 FL (80-99); NEUTROPHILS % (AUTO) 57.5 % (45.0-75.0); PLATELET COUNT 262 K/UL (150-450); RED CELL DISTRIBUTION WIDTH 10.6 % (11.6-14.8); WHITE BLOOD COUNT 9.9 K/UL (4.8-10.8)
[2018-02-25 07:52] LABS: BLOOD UREA NITROGEN 37 mg/dL (7-18); CALCIUM 9.5 MG/DL (8.5-10.1); CARBON DIOXIDE 26 MMOL/L (21-32); CREATININE 1.2 MG/DL (0.55-1.30)
[2018-02-25 08:00] VITALS: BP 125/67
[2018-02-25 08:04] LABS: CHLORIDE 105 MMOL/L (98-107); POTASSIUM 4.7 MMOL/L (3.5-5.1); SODIUM 139 MMOL/L (136-145)
[2018-02-25] MEDS: Mag Plus Protein 133mg Tab GT SCH ×3 (08:30→18:20)
[2018-02-25] MEDS: Metoprolol 25mg tab GT SCH ×2 (08:33→20:23)
[2018-02-25] MEDS: levETIRAcetam 500mg/5ml Liquid GT SCH ×2 (08:36→20:23)
[2018-02-25] MEDS: Heparin 5000 units/ml inj SUBQ SCH ×2 (08:38→20:24)
--- NOTE | 2018-02-25 08:56 | Nephrology Progress Note ---
Assessment/Plan Assessment/Plan A/P 1) Seizure- 5 months post craniotomy - keppra started. Level pending - plan is DC tiffani back to [place] and can f/u with his Neuro at [facility] 2) JOSHUA- secondary prerenal, resolved 3) HTN- stable 4) DVT prophylaxsis- heparin subq 5) DM- ISS Tx to Medsurg and DC [place] in am Subjective Date patient seen: Feb 25, 2018 Time patient seen: 08:51 ROS Limited/Unobtainable: Yes Allergies: Coded Allergies: No Known Allergies (Unverified , 02/23/18) Subjective Family at bedside. Patient stable Objective Last 24 Hour Vital Signs Date Time Temp Pulse Resp B/P (MAP) Pulse Ox O2 Delivery O2 Flow Rate FiO2 02/25/18 08:34 66 125/67 02/25/18 08:33 66 125/67 02/25/18 04:00 Room Air 02/25/18 04:00 98.7 75 18 96/65 (75) 96 02/25/18 04:00 73 02/25/18 00:00 98.0 78 17 127/67 (87) 97 02/25/18 00:00 77 02/25/18 00:00 Room Air 02/24/18 21:34 81 120/66 02/24/18 20:00 98.4 81 20 120/66 (84) 96 02/24/18 20:00 83 02/24/18 20:00 Room Air 02/24/18 16:00 Room Air 02/24/18 16:00 97.7 83 20 129/73 (91) 96 02/24/18 16:00 79 02/24/18 12:00 Room Air 02/24/18 12:00 77 02/24/18 11:48 98.0 77 19 116/65 (82) 99 Intake and Output 02/24/18 02/25/18 19:00 07:00 Intake Total 1710 ml 1900 ml Output Total 800 ml 1500 ml Balance 910 ml 400 ml Intake Free Water 290 ml 300 ml IV Total 1000 ml 1120 ml Tube Feeding 420 ml 480 ml Output Urine Total 800 ml 1500 ml # Voids 1 Laboratory Tests 02/24/18 10:15: Potassium Level 5.2H 02/25/18 05:40: Potassium Level 4.7, White Blood Count 9.9, Red Blood Count 2.90L, Hemoglobin 8.9L, Hematocrit 26.1L, Mean Corpuscular Volume 90, Mean Corpuscular Hemoglobin 30.9, Mean Corpuscular Hemoglobin Concent 34.3, Red Cell Distribution Width 10.6L, Platelet Count 262, Mean Platelet Volume 8.2, Neutrophils (%) (Auto) 57.5 , Lymphocytes (%) (Auto) 29.5, Monocytes (%) (Auto) 6.0, Eosinophils (%) (Auto) 6.0H, Basophils (%) (Auto) 1.0, Sodium Level 139, Chloride Level 105, Carbon Dioxide Level 26, Blood Urea Nitrogen 37H, Creatinine 1.2, Estimat Glomerular Filtration Rate > 60, Glucose Level 137H, Calcium Level 9.5, Levetiracetam ( Keppra) Level [Pending] Height (Feet): 5 Height (Inches): 8.00 Weight (Pounds): 163 General Appearance: no apparent distress EENT: normal ENT inspection Neck: normal alignment, supple Cardiovascular: normal rate, regular rhythm Respiratory/Chest: lungs clear, normal breath sounds Abdomen: non tender, soft Edema: no edema noted Arm (L), no edema noted Arm (R), no edema noted Leg (L), no edema noted Leg (R), no edema noted Pedal (L), no edema noted Pedal (R), no edema noted Generalized Nasim Rogel MD Feb 25, 2018 08:56
[2018-02-25] MEDS ORDERED: Aspirin Baby 81mg GT SCH (09:00)
[2018-02-25] MEDS ORDERED: Ascorbic Acid 500mg tab GT SCH (09:00)
[2018-02-25] MEDS ORDERED: Thiamine 100mg tab GT SCH (09:00)
[2018-02-25] MEDS ORDERED: Bethanechol 25mg Tab GT SCH (09:00)
[2018-02-25 12:36] VITALS: BP 113/67
[2018-02-25 16:11] VITALS: BP 130/71
[2018-02-25] MEDS ORDERED: Acetaminophen 650mg/20.3ml GT PRN (17:57)
[2018-02-25] MEDS: Bethanechol 25mg Tab GT SCH (18:20)
[2018-02-25 20:00] VITALS: BP 125/72
[2018-02-25] MEDS ORDERED: Atorvastatin 80mg tab GT SCH (21:00)
[2018-02-26] VITALS: BP 135/84
[2018-02-26] MEDS: NovoLOG Insulin Flexpen SUBQ SCH ×3 (00:15→13:28)
[2018-02-26 04:00] VITALS: BP 143/73
[2018-02-26 08:00] VITALS: BP 121/88
[2018-02-26 08:12] LABS: BASOPHILS % (AUTO) 1.1 % (0.0-2.0); EOSINOPHILS % (AUTO) 6.8 % (0.0-3.0); HEMATOCRIT 26.8 % (42.0-52.0); HEMOGLOBIN 9.3 G/DL (14.2-18.0); LYMPHOCYTES % (AUTO) 28.7 % (20.0-45.0); MEAN CORPUSCULAR VOLUME 89 FL (80-99); MONOCYTES % (AUTO) 5.6 % (1.0-10.0); NEUTROPHILS % (AUTO) 57.8 % (45.0-75.0); PLATELET COUNT 272 K/UL (150-450); RED CELL DISTRIBUTION WIDTH 10.5 % (11.6-14.8)
[2018-02-26 08:40] LABS: ANION GAP 10 mmol/L (5-15); BLOOD UREA NITROGEN 19 mg/dL (7-18); CALCIUM 9.4 MG/DL (8.5-10.1); CARBON DIOXIDE 23 MMOL/L (21-32); CHLORIDE 106 MMOL/L (98-107); CREATININE 0.9 MG/DL (0.55-1.30); POTASSIUM 4.5 MMOL/L (3.5-5.1); SODIUM 139 MMOL/L (136-145)
[2018-02-26] MEDS ORDERED: Aspirin Baby 81mg GT SCH (09:00)
[2018-02-26] MEDS ORDERED: Thiamine 100mg tab GT SCH (09:00)
[2018-02-26] MEDS ORDERED: Ascorbic Acid 500mg tab GT SCH (09:00)
[2018-02-26] MEDS: Metoprolol 25mg tab GT SCH (09:04)
[2018-02-26] MEDS: levETIRAcetam 500mg/5ml Liquid GT SCH (09:05)
[2018-02-26] MEDS: Mag Plus Protein 133mg Tab GT SCH ×2 (09:05→13:26)
[2018-02-26] MEDS: Bethanechol 25mg Tab GT SCH (09:05)
[2018-02-26] MEDS: Heparin 5000 units/ml inj SUBQ SCH (09:07)
--- NOTE | 2018-02-26 10:19 | Nephrology Progress Note ---
Assessment/Plan Assessment/Plan A/P 1) Seizure- 5 months post craniotomy - keppra started. Level pending. - DC today to [facility] and can f/u with his Neuro at [facility]. Keppra levels can be adjust at [place] 2) JOSHUA- secondary prerenal, resolved 3) HTN- stable 4) DVT prophylaxsis- heparin subq 5) DM- ISS DC [place] Subjective Date patient seen: Feb 26, 2018 Time patient seen: 10:18 ROS Limited/Unobtainable: Yes Allergies: Coded Allergies: No Known Allergies (Unverified , 02/23/18) Subjective Patient in no overt distress Objective Last 24 Hour Vital Signs Date Time Temp Pulse Resp B/P (MAP) Pulse Ox O2 Delivery O2 Flow Rate FiO2 02/26/18 09:05 97 121/88 02/26/18 09:04 97 121/88 02/26/18 08:15 Room Air 02/26/18 08:00 98.8 16 121/88 (99) 98 02/26/18 04:00 98.2 18 143/73 (96) 97 02/26/18 00:00 97.2 97 18 135/84 (101) 96 02/25/18 21:00 Room Air 02/25/18 20:23 77 130/71 02/25/18 20:00 98.6 77 18 125/72 (89) 96 02/25/18 16:11 97.2 77 18 130/71 (90) 96 02/25/18 12:36 96.8 70 18 113/67 (82) 96 02/25/18 11:39 73 Intake and Output 02/25/18 02/26/18 19:00 07:00 Intake Total 1640 ml 140 ml Balance 1640 ml 140 ml Intake Free Water 200 ml 100 ml IV Total 1000 ml Tube Feeding 440 ml 40 ml Laboratory Tests 02/26/18 07:19: White Blood Count 10.0, Red Blood Count 3.00L, Hemoglobin 9.3L, Hematocrit 26.8L , Mean Corpuscular Volume 89, Mean Corpuscular Hemoglobin 31.0, Mean Corpuscular Hemoglobin Concent 34.7, Red Cell Distribution Width 10.5L, Platelet Count 272, Mean Platelet Volume 8.4, Neutrophils (%) (Auto) 57.8, Lymphocytes (%) (Auto) 28.7, Monocytes (%) (Auto) 5.6, Eosinophils (%) (Auto) 6.8H, Basophils (%) (Auto) 1.1, Sodium Level 139, Potassium Level 4.5, Chloride Level 106, Carbon Dioxide Level 23, Anion Gap 10, Blood Urea Nitrogen 19H, Creatinine 0.9, Estimat Glomerular Filtration Rate > 60, Glucose Level 135H, Calcium Level 9.4 Height (Feet): 5 Height (Inches): 8.00 Weight (Pounds): 151 General Appearance: no apparent distress, alert EENT: normal ENT inspection Neck: normal alignment, supple Cardiovascular: normal rate, regular rhythm Respiratory/Chest: lungs clear, normal breath sounds Abdomen: non tender, soft Edema: no edema noted Arm (L), no edema noted Arm (R), no edema noted Leg (L), no edema noted Leg (R), no edema noted Pedal (L), no edema noted Pedal (R), no edema noted Generalized Nasim Rogel MD Feb 26, 2018 10:19
--- NOTE | 2018-02-26 10:25 | Discharge Instructions ---
Discharge Instructions Discharge Instructions Services at Discharge: day care Diet: tube feeding Follow Up Orders Same medications at discharge. Add Keppra 500mg bid and PCP at [facility] to adjust dose Will need Neuro evaluation as outpatient For Congestive Heart Failure Reminder Report to your physician any weight gain of 5 pounds or more in one week. Nasim Rogel MD Feb 26, 2018 10:25
--- NOTE | 2018-02-26 11:52 | Infectious Diseases Prog Note ---
Assessment/Plan Assessment/Plan Abx: None Assessment: seizure Vomiting -CT head Extensive chronic and postsurgical changes, as described. Negative for acute intracranial bleed or mass effect Afebrile Leukocytosis, resolved off abx- suspect reactive to seizure episode -CXR No acute process -u/a neg -CT abd/p: No definite acute abnormality. Gastrostomy in good position. Equivocal bladder wall thickening, could indicate cystitis. Correlate with clinical findings. Nonspecific bilateral perinephric fat stranding HTN Dm2 GERD CVA TBI s/p craniectomy SNF resident Plan: -Continue to monitor off abx -f/u cx -Monitor CBC/CMP, temperatures -aspiration precautions -Neuro eval Thank you for this consultation. Will continue to follow along with you. Discussed with RN. Subjective Allergies: Coded Allergies: No Known Allergies (Unverified , 02/23/18) Subjective afebrile no leukocytosis Objective Vital Signs Last 24 Hour Vital Signs Date Time Temp Pulse Resp B/P (MAP) Pulse Ox O2 Delivery O2 Flow Rate FiO2 02/26/18 09:05 97 121/88 02/26/18 09:04 97 121/88 02/26/18 08:15 Room Air 02/26/18 08:00 98.8 16 121/88 (99) 98 02/26/18 04:00 98.2 18 143/73 (96) 97 02/26/18 00:00 97.2 97 18 135/84 (101) 96 02/25/18 21:00 Room Air 02/25/18 20:23 77 130/71 02/25/18 20:00 98.6 77 18 125/72 (89) 96 02/25/18 16:11 97.2 77 18 130/71 (90) 96 02/25/18 12:36 96.8 70 18 113/67 (82) 96 Height (Feet): 5 Height (Inches): 8.00 Weight (Pounds): 151 Objective General Appearance: normal inspection, well appearing, no apparent distress, alert HEENT: normal ENT inspection, hearing grossly normal, normal voice Neck: normal inspection, full range of motion, supple, no bony tend Respiratory: normal inspection, lungs clear, normal breath sounds, no respiratory distress, no retraction, no wheezing Cardiovascular : regular rate, rhythm, no edema Gastrointestinal: normal inspection, normal bowel sounds, non tender, soft, no guarding, no hernia Genitourinary: no CVA tenderness Musculoskeletal: normal inspection, back normal, normal range of motion Neurologic: normal inspection, alert, responsive Microbiology Date/Time Source Procedure Growth Status 02/24/18 03:25 Blood Blood Culture - Preliminary NO GROWTH AFTER 48 HOURS Resulted 02/24/18 03:20 Blood Blood Culture - Preliminary NO GROWTH AFTER 48 HOURS Resulted 02/23/18 19:40 Nasal Nares MRSA Culture - Final Staphylococcus Aureus - Mrsa Complete 02/24/18 19:40 Rectum VRE Culture - Final Enterococcus Faecalis - Vre Enterococcus Faecium - Vre Complete 02/23/18 19:40 Rectum Received Laboratory Tests Test 02/26/18 07:19 White Blood Count 10.0 K/UL (4.8-10.8) Red Blood Count 3.00 M/UL (4.70-6.10) L Hemoglobin 9.3 G/DL (14.2-18.0) L Hematocrit 26.8 % (42.0-52.0) L Mean Corpuscular Volume 89 FL (80-99) Mean Corpuscular Hemoglobin 31.0 PG (27.0-31.0) Mean Corpuscular Hemoglobin Concent 34.7 G/DL (32.0-36.0) Red Cell Distribution Width 10.5 % (11.6-14.8) L Platelet Count 272 K/UL (150-450) Mean Platelet Volume 8.4 FL (6.5-10.1) Neutrophils (%) (Auto) 57.8 % (45.0-75.0) Lymphocytes (%) (Auto) 28.7 % (20.0-45.0) Monocytes (%) (Auto) 5.6 % (1.0-10.0) Eosinophils (%) (Auto) 6.8 % (0.0-3.0) H Basophils (%) (Auto) 1.1 % (0.0-2.0) Sodium Level 139 MMOL/L (136-145) Potassium Level 4.5 MMOL/L (3.5-5.1) Chloride Level 106 MMOL/L (98-107) Carbon Dioxide Level 23 MMOL/L (21-32) Anion Gap 10 mmol/L (5-15) Blood Urea Nitrogen 19 mg/dL (7-18) H Creatinine 0.9 MG/DL (0.55-1.30) Estimat Glomerular Filtration Rate > 60 mL/min (>60) Glucose Level 135 MG/DL (74-106) H Calcium Level 9.4 MG/DL (8.5-10.1) Current Medications Medications (Trade) Dose Ordered Sig/Xavi Route PRN Reason Start Time Stop Time Status Last Admin Dose Admin Acetaminophen (Tylenol) 650 mg Q4H PRN GT mild pain 02/25/18 17:57 03/25/18 17:56 Amino Acids/ Magnesium (Mg-Plus) 133 mg THREE TIMES A DAY GT 02/25/18 18:00 03/26/18 08:59 02/26/18 09:05 Amlodipine Besylate (Norvasc) 10 mg DAILY GT 02/26/18 09:00 03/26/18 08:59 02/26/18 09:05 Ascorbic Acid (Vitamin C) 500 mg DAILY GT 02/26/18 09:00 03/26/18 08:59 02/26/18 09:04 Aspirin (ASA) 81 mg DAILY GT 02/26/18 09:00 03/26/18 08:59 02/26/18 09:04 Atorvastatin Calcium (Lipitor) 80 mg BEDTIME GT 02/25/18 21:00 03/26/18 20:59 02/25/18 20:23 Baclofen (Lioresal) 10 mg DAILY GT 02/26/18 09:00 03/26/18 08:59 02/26/18 09:04 Bethanechol Chloride (Urecholine) 50 mg BID GT 02/25/18 18:00 03/26/18 08:59 02/26/18 09:05 Dextrose (Dextrose 50%) 25 ml Q30M PRN IV Hypoglycemia 02/25/18 18:15 03/25/18 22:14 Dextrose (Dextrose 50%) 50 ml Q30M PRN IV Hypoglycemia 02/25/18 18:15 03/25/18 22:14 Heparin Sodium (Porcine) (Heparin 5000 units/ml) 5,000 units EVERY 12 HOURS SUBQ 02/25/18 21:00 03/26/18 08:59 02/26/18 09:07 Insulin Aspart (NovoLOG) Q6HR SUBQ 02/25/18 18:00 03/26/18 06:29 12/26/18 06:01 Levetiracetam (Keppra) 500 mg Q12HR GT 02/25/18 21:00 03/26/18 10:59 02/26/18 09:05 Metoprolol Tartrate (Lopressor) 25 mg Q12HR GT 02/25/18 21:00 03/25/18 22:44 02/26/18 09:04 Ondansetron HCl (Zofran) 4 mg Q6H PRN IVP Nausea & Vomiting 02/25/18 18:00 03/25/18 17:59 Thiamine HCl (Vitamin B1) 100 mg DAILY GT 02/26/18 09:00 03/26/18 08:59 02/26/18 09:04 Bernadette Cohn M.D. Feb 26, 2018 11:52
[2018-02-26 12:00] VITALS: BP 130/70
[2018-02-26] MEDS ORDERED: KEPPRA500 M4 ORAL (14:29)
--- NOTE | 2018-02-27 09:08 | Discharge Summary ---
Discharge Summary Discharge Summary _ DATE OF ADMISSION: 02/23/2018 DATE OF DISCHARGE: 02/26/2018 DISCHARGED BY: Dr. Nasim Rogel CONSULTANTS: Dr. Bernadette Bowman BRIEF HOSPITAL COURSE: Patient is a 47-year-old male, who, 5 months ago had a traumatic brain injury and craniotomy done at [facility]. Patient has been residing at [facility]. There were no previous history of seizure disorder. The patient has been doing well until noticed patient was having seizures. He was then taken to ED for further evaluation and care. He has medical history significant for diabetes mellitus, hypertension and traumatic brain injury. On evaluation at the ED, blood work showed leukocytosis, WBC 16.9. Hemoglobin and hematocrit were stable. Creatinine was elevated to 2.4, BUN 84. Urinalysis was fairly unremarkable. CT of head showed postsurgical changes without evidence of acute changes. He was started on IV Keppra. He was given IV fluids. He was noted to be vomiting. CT of the abdomen and pelvis definite acute abnormality. Gastrostomy tube in good position. He was then admitted for evaluation of new onset seizure. He was continued on Keppra 500 mg twice daily via G-tube. He was continued on IV hydration. Creatinine improved. He has history of diabetes mellitus and was placed on insulin sliding scale. Leukocytosis, improved, suspect reactive to seizure episode. Leukocytosis eventually resolved. Blood culture did not isolate any growth. Urinalysis was negative. CXR NAD. Keppra level still pending. Keppra can be adjusted at the group home. He was cleared for discharge to follow-up with neurologist at [facility]. FINAL DIAGNOSES: Seizure disorder, status post craniotomy 5 months ago Acute kidney injury, secondary to prerenal, resolved Hypertension Diabetes mellitus Leukocytosis, resolved, suspect reactive to seizure episode GERD CVA Traumatic brain injury status post craniectomy DISPOSITION: Patient was discharged back to group home. DISCHARGE MEDICATIONS: Refer to Discharge Medication List. I have been assigned to dictate discharge summary on this account, and I was not involved in the patient's management. Haley Alejo NP Feb 27, 2018 09:08
== END 2018-02-26 17:04 | DRG 53 ==
LOC: EDBD 16:22 → EMR 16:58 → EDBEDREQ 20:08 → UNDOADMIN 21:08 → 2E 21:08 → EDBEDREQ 22:00 → 2W 23:01 → 2E 02-24 18:45 → 4E 02-25 17:04
DX: G40.909 Epilepsy, unspecified, not intractable, without status epilepticus (principal); N17.9 Acute kidney failure, unspecified; Z87.820 Personal history of traumatic brain injury; Z98.890 Other specified postprocedural states; I10 Essential (primary) hypertension; E11.9 Type 2 diabetes mellitus without complications; K21.9 Gastro-esophageal reflux disease without esophagitis; Z86.73 Personal history of transient ischemic attack (TIA), and cerebral infarction without residual deficits; Z43.1 Encounter for attention to gastrostomy
CPT/HCPCS: 36415; 70450; 71045; 74176; 80048; 80053; 80299; 81001; 82962; 84132; 84484; 85025; 87040; 87081; 93005; 96361; 96374; 96375; 99285; J1815; J2405

== ENCOUNTER 2018-11-13 18:30 | Outpatient (CLI) | payer OTHER ==
[~2018-11-13 18:30] MED LIST: ACETAMINOPHEN325 M1 GT; ASCORBIC ACID500 MG GT; ASPIR 8181 MG GT; BACLOFEN10 MG GT; COLACE100 MG GT; DULCOLAX10 MG RC; DUONEB 0.5-3(2.53 ML HHN; FERROUS SULFAT325 MG GT; FLEET ENEMA133 ML RECTAL; FUROSEMIDE40 MG GT; HEPARIN SO5000 UNIT2 SUBQ; HYDROXYZINE HCL10 M1 PO; KEPPRA500 M4 ORAL; LIPITOR80 MG GT; LISINOPRIL20 MG GT; METOPROLOL SUCC25 MG GT; METOPROLOL TART25 MG GT; METOPROLOL TART25 MG ORAL; MILK OF MA400 MG/51 GT; MULTIVITAMINS1 EAC2 GT; NORVASC10 MG GT; NOVOLIN N100 UNIT/1 SUBQ; NOVOLIN R100 UNIT/1 SUBQ; OMEPRAZOLE20 M2 GT; PANTOPRAZOLE SO40 MG GT; PRO-STAT LIQUID30 ML GT; REGULAR INSULIN SS; SENNA8.6 M2 GT; TAMSULOSIN HCL0.4 MG GT; URECHOLINE50 MG GT; VITAMIN B-1100 MG GT; VITAMIN D1000 UNI1 GT; ZOFRAN4 M3 GT; dulcolax supp RC; duo neb HHN; fleets enema RC
--- NOTE | 2018-11-14 13:54 | Diagnostic Imaging Report ---
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 Increased STIR and decreased T1 signal is seen within the fused fifth middle and distal phalanx. There is also increased STIR signal with equivocal slightly decreased T1 signal within the distal aspect of the proximal phalanx. Marrow signal within the fifth metatarsal appears normal. Patient is status post amputation of the first digit at the level of the metatarsophalangeal joint. Normal signal is seen within the first metatarsal. However, there is high STIR signal and subtle decreased T1 signal within the medial first metatarsal head sesamoid. No other marrow signal abnormality is demonstrated. There is diffuse edema of the deep musculotendinous compartment without discrete fluid collection. Only minimal edema of the subcutaneous fat is demonstrated. No focal fluid collection to suggest abscess. A small cyst is seen within the lateral cuneiform. This may be degenerative in nature. 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 This may indicate osteomyelitis of this bone as well Unusual finding of diffuse edema of the deep musculotendinous compartment without evidence of superficial edema. No drainable abscess collection demonstrated Small cyst within the lateral cuneiform, probably a degenerative subchondral cyst Findings discussed by phone with Dr. Hubbard at the time of interpretation
== END 2018-11-13 20:30 | disposition home or self-care (01) ==
LOC: MRI 18:30
DX: M79.675 Pain in left toe(s) (principal); Z89.412 Acquired absence of left great toe; M86.9 Osteomyelitis, unspecified